=== PATIENT | female | born 1945 | race Hispanic/Latino ===

== ENCOUNTER 2021-03-23 08:10 | Outpatient (CLI) | payer MEDICARE | END 2021-03-23 08:11 | disposition home or self-care (01) | LOC: CSHCT 08:10 | PROVIDERS: ATTEND Internal Medicine Hematology & Oncology | DX: C22.1 Intrahepatic bile duct carcinoma (principal); R93.2 Abnormal findings on diagnostic imaging of liver and biliary tract | CPT/HCPCS: 71260; 74177; 82565 ==

== ENCOUNTER 2021-09-21 08:53 | Outpatient (CLI) | payer MEDICARE ==
[2021-09-21] MEDS ORDERED: Iopamidol 300 61% 100 ML VIAL FS ONE (14:53)
== END 2021-09-21 08:54 | disposition home or self-care (01) ==
LOC: CSHCT 08:53
PROVIDERS: ATTEND Internal Medicine Hematology & Oncology
DX: C22.1 Intrahepatic bile duct carcinoma (principal); K76.89 Other specified diseases of liver
CPT/HCPCS: 71260; 74177; 82565; Q9967

== ENCOUNTER 2022-03-28 11:55 | Outpatient (CLI) | payer MEDICARE ==
[~2022-03-28 11:55] MED LIST: Iopamidol 300 61% 100 ML VIAL FS ONE
== END 2022-03-28 11:56 | disposition home or self-care (01) ==
LOC: CSHCT 11:55
PROVIDERS: ATTEND Internal Medicine Hematology & Oncology
DX: C22.1 Intrahepatic bile duct carcinoma (principal)
CPT/HCPCS: 71260; 74177; 82565

== ENCOUNTER 2022-09-19 10:08 | Outpatient (CLI) | payer MEDICARE | END 2022-09-19 10:09 | disposition home or self-care (01) | LOC: CSHCT 10:08 | PROVIDERS: ATTEND Internal Medicine Hematology & Oncology | DX: C22.1 Intrahepatic bile duct carcinoma (principal) | CPT/HCPCS: 71260; 74177; 82565 ==